=== PATIENT | male | born 1940 | race Caucasian/White ===

== ENCOUNTER 2018-08-08 09:19 | Day surgery (SDC) | payer MEDICARE ==
[2018-08-08] MEDS ORDERED: Sodium Chloride 0.9% 10 ML ONE (09:31)
[2018-08-08 09:54] VITALS: BP 156/70; TEMP 97.4
[2018-08-08] MEDS ORDERED: diphenhydrAMINE 25 MG CAP PO SCH (10:15)
[2018-08-08] MEDS ORDERED: Acetaminophen 500 MG TAB PO SCH (10:15)
[2018-08-08] MEDS ORDERED: Privigen 20 GM, Privigen 10 GM in IV Admixture Fee-Chemo 1 UNITS IVPB SCH (11:00)
== END 2018-08-08 13:14 | disposition home or self-care (01) ==
LOC: ONC/OP 09:19
PROVIDERS: ATTEND Internal Medicine Hematology & Oncology
DX: C91.11 Chronic lymphocytic leukemia of B-cell type in remission (principal); D80.1 Nonfamilial hypogammaglobulinemia; I10 Essential (primary) hypertension; I25.10 Atherosclerotic heart disease of native coronary artery without angina pectoris; I25.2 Old myocardial infarction; E78.00 Pure hypercholesterolemia, unspecified; K21.9 Gastro-esophageal reflux disease without esophagitis; Z79.02 Long term (current) use of antithrombotics/antiplatelets; Z79.899 Other long term (current) drug therapy
CPT/HCPCS: 96365; 96366; J1459

== ENCOUNTER → 2018-11-02 | Day surgery (SDC) | payer MEDICARE, OTHER ==
[~2018-11-02] MED LIST: ADMIXTURE FEE CHEMO IVPB SCH; Acetaminophen 500 MG TAB PO SCH; OCTAGAM IVPB SCH; diphenhydrAMINE 25 MG CAP PO SCH
== END ==
LOC: ONC/OP 00:21
PROVIDERS: ATTEND Internal Medicine Hematology & Oncology
DX: C91.11 Chronic lymphocytic leukemia of B-cell type in remission (principal)